=== PATIENT | male | born 1940 | race Asian ===

== ENCOUNTER 2019-01-31 09:11 | Outpatient (CLI) | payer MEDICARE, OTHER ==
[2019-01-31 17:37] LABS: HEMOGLOBIN A1C 0.63 g/dL; HEMOGLOBIN A1C % 6.6 % (4.6-6.2)
== END 2019-01-31 09:12 | disposition home or self-care (01) ==
LOC: LAB.S 09:11
PROVIDERS: ATTEND Internal Medicine
DX: E11.21 Type 2 diabetes mellitus with diabetic nephropathy (principal)
CPT/HCPCS: 36415; 83036

== ENCOUNTER 2021-04-29 08:55 | Outpatient (CLI) | payer MEDICARE, OTHER ==
[2021-04-29 15:08] LABS: ALBUMIN 2.8 g/dL (3.2-5.5); CALCIUM 8.9 mg/dL (8.5-10.3); CREATININE 2.1 mg/dL (0.6-1.2); PHOSPHORUS 3.5 mg/dL (2.5-4.6); POTASSIUM 4.8 mmol/L (3.5-5.0)
[2021-04-29 16:35] LABS: CREATININE,URINE 78.6 mg/dL; PROTEIN/CREATININE RATIO,URINE 9.2 (<=0.2)
== END 2021-04-29 08:56 | disposition home or self-care (01) ==
LOC: LAB.S 08:55
PROVIDERS: ATTEND Internal Medicine Nephrology
DX: I12.9 Hypertensive chronic kidney disease with stage 1 through stage 4 chronic kidney disease, or unspecified chronic kidney disease (principal); N18.31 Chronic kidney disease, stage 3a; R80.9 Proteinuria, unspecified
CPT/HCPCS: 36415; 80069; 81599; 82570; 83540; 83970; 84156; 84466; 85018